=== PATIENT | male | born 1945 | race African-American/Black ===

== ENCOUNTER 2020-08-22 14:50 | Emergency (ER) | payer MEDICARE, SELFPAY ==
--- NOTE | ~2020-08-22 | XR_ITS ---
EXAMINATION: XR knee LT 3V EXAM DATE: 08/22/2020 16:35 INDICATION: Fall, left knee pain. TECHNIQUE: Three projections of the left knee. There is no prior study for comparison. FINDINGS: There is moderate-sized left knee joint effusion without evidence of lipomatous component. There are lucencies through the tibia which would be explained by prior tibial hardware that has been removed, please correlate for that history. This could also explain the abnormal appearance to the l ateral tibial spine, may have been avulsed with at injury. There are no acute fractures identified. No radiopaque foreign bodies identified. IMPRESSION: 1. Moderate joint effusion. 2. Evidence of substantial prior Injury causing some limitations, but no acute fracture line suspect ed. Reviewed, dictated and finalized at location G. IMPRESSION: 1. Moderate joint effusion. 2. Evidence of substantial prior Injury causing some limitations, but no acute fracture line suspected.
[2020-08-22 15:00] VITALS: BP 136/91; PULSE 91; PULSE 92; RESP 15; RESP 18; TEMP 37; O2SAT 93; O2SAT 96
[2020-08-22 15:16] VITALS: BP 111/80; PULSE 94; RESP 18; O2SAT 98
--- NOTE | 2020-08-22 17:29 | ED.FALL ---
HPI - Fall General Chief Complaint: Fall Stated Complaint: 3 falls today Time Seen by Provider: 08/22/20 14:57 History of Present Illness HPI Narrative: Patient is a 75-year-old male who presents the ER with knee pain. He was on a field golfing earlier in fell over. He then had 2 falls after that after injuring his left knee. He has pain over the medial aspect. Patient has history of some chronic back pain with right-sided sciatica nerve discomfort with chronic numbness to the anterior thigh. He has been seen outpatient by spine team and has had an MRI. He is going to see [facility] next week for a steroid injection in his back. No new pain in his back. Did not strike his head or lose consciousness. No new numbness or focal weakness to an arm or leg. He is not dizzy. Related Data Home Medications Medication Instructions Recorded Confirmed amlodipine 08/22/20 08/22/20 carvedilol 08/22/20 furosemide 08/22/20 hydrocodone-acetaminophen tablet 08/22/20 oxybutynin chloride mg PO 08/22/20 zolpidem PO 08/22/20 Allergies Allergy/AdvReac Type Severity Reaction Status Date / Time No Known Allergies Allergy Verified 08/22/20 15:06 Review of Systems Review of Systems: All systems reviewed & are unremarkable except as noted in HPI and below Constitutional: Constitutional: Denies chills, Denies fever(s) and Denies weakness ENT: Denies nasal congestion and Denies sore throat Musculoskeletal: Musculoskeletal: Reports back pain (chronic), Denies myalgias, Reports arthralgias and Denies joint swelling Neurologic: Denies dizziness, Denies focal weakness, Reports numbness (right thigh) and Denies weakness PMFSH Past Medical History Medical History (Updated 08/22/20 @ 17:34 by Jeevan Cali MD) Hypertension Prostate cancer Surgical History Surgical History (Updated 08/22/20 @ 17:31 by Jeevan Cali MD) History of orthopedic surgery Previous back surgery Exam Narrative: Exam Narrative: GENERAL: Well-appearing, well-nourished, and in no acute distress. HEAD: Normocephalic, atraumatic. CHEST: Clear to auscultation. No respiratory distress. HEART: Regular rate and rhythm. Normal peripheral pulses. EXTREMITIES: Normal range of motion. Normal strength of bilateral lower extremities. Tenderness along the medial aspect of the left knee with mild effusion. Ambulates well with walker. SKIN: Warm, dry, no rash. NEURO: No focal deficits. Alert and oriented x3. PSYCH: Normal mood and affect. Course Course Emergency Course: Ambulated well. Informed of results. Recommend using walker at home. Follow-up with pain management next week. Vital Signs Vital signs: Vital Signs Temperature 98.6 F 08/22/20 15:00 Pulse Rate 92 08/22/20 15:00 Respiratory Rate 18 08/22/20 15:00 Blood Pressure 136/91 H 08/22/20 15:00 Pulse Oximetry 96 08/22/20 15:00 Temperature 98.6 F 08/22/20 15:00 Pulse Rate 94 08/22/20 15:16 Respiratory Rate 18 08/22/20 15:16 Blood Pressure 111/80 08/22/20 15:16 Pulse Oximetry 98 08/22/20 15:16 Discharge Plan Discharge Clinical Impression: Sprain of knee Patient Disposition: Home, Self-Care Condition: Stable Instructions: Knee Sprain (ED) Additional Instructions: Return to the ER if you cannot walk, you fall and injure yourself, you have fever over 100.4 ?F, you have some other concerns. Prescriptions: New ibuprofen 800 mg tablet 800 mg PO TID Qty: 20 RF: 0 ibuprofen 600 mg tablet 600 mg PO TID Qty: 14 RF: 0 No Action carvedilol 25 mg tablet RF: 0 oxybutynin chloride 10 mg tablet extended release 24hr PO RF: 0 amlodipine 5 mg tablet RF: 0 hydrocodone-acetaminophen 10-325 mg tablet RF: 0 furosemide 20 mg tablet RF: 0 zolpidem 12.5 mg tablet,ext release multiphase PO RF: 0 Follow-up/Referrals: Zander,Sharee Mccormick MD [Primary Care Provider] - 1 Week
[2020-08-22 17:51] VITALS: BP 156/87; PULSE 68; RESP 18; O2SAT 99
== END 2020-08-22 17:53 | disposition home or self-care (01) ==
PROVIDERS: Emergency Provider Emergency Medicine; PCP Internal Medicine
DX: S83.92XA Sprain of unspecified site of left knee, initial encounter (principal); I10 Essential (primary) hypertension; Z85.46 Personal history of malignant neoplasm of prostate; W18.39XA Other fall on same level, initial encounter
CPT/HCPCS: 73562; 99283

== ENCOUNTER 2020-12-19 11:53 | Observation (INO) | payer MEDICARE, SELFPAY ==
[2020-12-19] VITALS (10 sets, daily range): BP systolic 78–148; BP diastolic 58–99; PULSE 83–147; RESP 14–21; TEMP 36.1–37.1; O2SAT 96–100; BMI 36.0
--- NOTE | ~2020-12-19 | XR_ITS ---
EXAMINATION: XR chest 1V portable DATE: 12/19/2020 13:17 INDICATION: Shortness of breath. TECHNIQUE: A single frontal view of the chest was obtained on 2 radiographs. COMPARISON: None. FINDINGS: Sensitivity is decreased by obesity. There is mild atelectasis at left lung base. No pleura l effusion or pneumothorax. The heart size is normal. There are changes of anterior fusion procedure in cervical spine and posterior fusion procedure in cervicothoracic spine. There are old healed left rib fractures. IMPRESSION: 1. Mild atelectasis at left lung base. Reviewed, dictated and finalized at location B. ITION TECHNICIAN
--- NOTE | 2020-12-19 12:14 | ECG_ITS ---
Measurements Intervals [place] Rate: 152 P: 253 [place]: 83 QRS: -48 QRSD: 108 T: 75 QT: 296 QTc: 471 Interpretive Statements SUPRAVENTRICULAR TACHYCARDIA, CONSIDER ATRIAL FLUTTER VENTRICULAR PREMATURE COMPLEX LEFT ANTERIOR FASCICULAR BLOCK LEFT VENTRICULAR HYPERTROPHY AND ST-T CHANGE ABNORMAL ECG Electronically Signed On 12-19-2020 13:38:32 BOMB LOADER by Amrit Ramirez D.O.
[2020-12-19] MEDS: LACTATED RINGERS 1,000 ML 999 ML IV CONT (12:31)
[2020-12-19 12:36] LABS: Basophils Percent Auto 0.4 % (0.2-1.2); Eosinophils Absolute Auto 0.2 K/mm3 (0-0.3); Eosinophils Percent Auto 2.2 % (0-4.4); Hematocrit 40.9 % (42.0-52.0); Hemoglobin 12.8 g/dL (14.0-18.0); Immature Granulocyte Absolute 0.05 K/mm3 (0.00-0.031); Immature Granulocyte Percent A 0.5 % (0-0.5); Lymphocytes Absolute Auto 2.65 K/mm3 (0.9-3.2); Lymphocytes Percent Auto 25.8 % (18.3-44.2); Mean Corpuscular HGB Conc 31.3 g/dl (32-36); Mean Corpuscular Hemoglobin 26.2 pg (26-34); Mean Corpuscular Volume 83.6 fl (80-100); Mean Platelet Volume 8.8 fl (7.4-10.4); Monocytes Absolute Auto 0.9 K/mm3 (0.1-0.6); Monocytes Percent Auto 8.7 % (2.6-8.5); Neutrophils Absolute Auto 6.4 K/mm3 (1.3-6.7); Neutrophils Percent Auto 62.4 % (45.5-73.1); Platelet Count Result 200 k/mm3 (150-375); Red Blood Count 4.89 M/mm3 (4.6-6.20); Red Cell Distribution Width 15.9 % (11.5-14.5); White Blood Count 10.3 K/mm3 (4.5-10.0)
[2020-12-19] MEDS: ETOMIDATE 20 MG/10 ML AMPUL 10 MG IV PUSH (12:36)
[2020-12-19 12:44] LABS: Alanine Aminotransferase 16 U/L (4-50); Albumin Level 3.5 g/dL (3.5-5.1); Alkaline Phosphatase 79 U/L (38-126); Anion Gap 5 mmol/L (8-16); Aspartate Amino Transferase 22 U/L (17-59); Bilirubin,Total 0.3 mg/dL (0.2-1.3); Blood Urea Nitrogen 16 mg/dL (9-20); Calcium 9.5 mg/dL (8.4-10.2); Carbon Dioxide 28 mmol/L (22-30); Chloride 107 mmol/L (98-107); Estimated CRCL calculation 60 ml/min; Estimated Glomerular Filt Rate 60; Glucose 118 mg/dL (75-110); Sodium 140 mmol/L (137-145)
--- NOTE | 2020-12-19 12:45 | ECG_ITS ---
Measurements Intervals [place] Rate: 91 P: 51 SC: 170 QRS: -9 QRSD: 118 T: 39 QT: 380 QTc: 470 Interpretive Statements SINUS RHYTHM INTRAVENTRICULAR CONDUCTION DELAY BORDERLINE R WAVE PROGRESSION, ANTERIOR LEADS BORDERLINE ECG Electronically Signed On 12-19-2020 13:39:03 THEATER EDUCATION TEACHER by Amrit Ramirez D.O.
--- NOTE | 2020-12-19 12:45 | PC.NURSE ---
Pt was cardioverted at 1239 at 100J. after noted SR with PAC. VS HR 91 BP 126/96 Resp 17 SPO2 94.
[2020-12-19 12:56] LABS: NT Pro B Type Natriuretic Pept 498 PG/ML (5-100); Troponin I 0.013 ng/mL (0.000-0.034)
[2020-12-19 13:14] LABS: Free T4 Free Thyroxine 1.22 ng/mL (0.78-2.19)
[2020-12-19 13:30] LABS: Lactic Acid Reflex 2.3 mmol/L (0.7-2.1)
--- NOTE | 2020-12-19 14:19 | ED.WEAKNESS ---
HPI - Weakness General Chief complaint: Weakness Stated complaint: low bp Time Seen by Provider: 12/19/20 12:09 Source: patient Mode of arrival: ambulatory Limitations: clinical condition History of Present Illness HPI Narrative: 75-year-old man Patient went to his doctor's office because he fell yesterday while he was putting his shoes on and scraped up his back He does not recall having shortness of breath or chest pain, did not notice that he was tachycardic, did not have any feeling that he was syncopal or presyncopal There he was noted to be hypotensive so he was sent to the ER via EMS Here he is also noted to be tachycardic with a heart rate of around 150 EKG looks like atrial flutter Patient is not super up on his past medical history noting that the reason for most of his medications is I needed them We were able to reach 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 Odom who confirmed a previous history of cardiomyopathy and paroxysmal A. fib, and also that the patient typically was in sinus rhythm, as far as he knew was anticoagulated, and agreed he would be a reasonable candidate to be successfully DC cardioverted Complaint: generalized weakness and lack of energy Related Data Home Medications Medication Instructions Recorded Confirmed amlodipine 08/22/20 08/22/20 carvedilol 08/22/20 furosemide 08/22/20 hydrocodone-acetaminophen tablet 08/22/20 oxybutynin chloride mg PO 08/22/20 zolpidem PO 08/22/20 Allergies Allergy/AdvReac Type Severity Reaction Status Date / Time No Known Allergies Allergy Verified 12/19/20 12:03 Review of Systems Review of Systems: ROS unobtainable: Yes unobtainable due to medical condition Constitutional: Constitutional: Denies fever(s) Cardiovascular: Cardiovascular: Denies chest pain Respiratory: Respiratory: Denies cough Gastrointestinal: Gastrointestinal: Denies vomiting Neurologic: Denies focal weakness PMFSH Past Medical History Medical History (Updated 12/19/20 @ 14:35 by Robert Mena MD) Hypertension Prostate cancer Surgical History Surgical History (Updated 08/22/20 @ 17:31 by Jeevan Cali MD) History of orthopedic surgery Previous back surgery Exam Const: General: well developed, awake and ill appearing Nutritional Appearance: well nourished Orientation/consciousness: patient oriented x3 (alert) HENMT: Head: normocephalic and atraumatic Ears: external ears normal General nose exam: No nasal discharge present and no epistaxis Face and sinus: face symmetric Eyes: Conjunctivae: conjunctivae normal Sclera: sclerae normal EOM: EOMs intact bilaterally Neck: Neck: normal visual inspection, supple and no JVD Chest: Chest palpation & inspection: deferred Resp: Effort & Inspection: tachypneic Auscultation: clear to auscultation bilaterally, no rales, no rhonchi, no wheezes and other (BS =) Cardio: Rate: regular rate and tachycardic Rhythm: regular rhythm Heart sounds: no gallops and no murmurs GI: Inspection: normal to inspection GI Palp: Yes Soft to palpation and No Tenderness to palpation present (GI) Back/Spine/Pelvis: Thoracic/Lumbar Spine: thoracic and lumbar spine normal to inspection Skin: General skin exam: normal color and no rashes or lesions noted Neuro: General: patient oriented x3 (alert) and moves all extremities Cranial nerves: Yes facial symmetry Speech: normal speech Extrem: General: normal to inspection and full ROM Course Vital Signs Vital signs: Vital Signs Temperature 37.1 C 12/19/20 12:00 Pulse Rate 147 H 12/19/20 12:00 Respiratory Rate 14 12/19/20 12:00 Blood Pressure 84/58 L 12/19/20 12:00 Pulse Oximetry 98 12/19/20 12:00 Temperature 37.1 C 12/19/20 12:00 Pulse Rate 144 H 12/19/20 12:34 Respiratory Rate 19 12/19/20 12:34 Blood Pressure 78/64 L 12/19/20 12:34 Pulse Oximetry 96 12/19/20 12:34 Procedures Other Procedure Procedure 1: Ot
[2020-12-19 16:10] LABS: Troponin I 0.017 ng/mL (0.000-0.034)
[2020-12-19 16:16] LABS: Reflex Lactic Acid Yes or No Add Lactic
[2020-12-19 16:42] LABS: Lactic Acid 1.3 mmol/L (0.7-2.1)
--- NOTE | 2020-12-19 20:00 | PM.IMHP ---
H&P: HPI History of Present Illness Date/Time: 12/19/20 20:00 Chief Complaint: Low blood pressure. Narrative: This is a 75-year-old male history of paroxysmal atrial fibrillation, cardiomyopathy, and hypertension who presented to the emergency department earlier today via EMS from his primary care provider's office for further treatment evaluation of low blood pressure. Yesterday while putting on his shoes he lost his balance and fell back into a filing cabinet, sustaining a laceration in the mid back area. He had an appointment with his primary care provider today to evaluate that wound and in fact he was feeling pretty good when he woke up. He had no specific complaints at the doctor's office but when they took his vital signs he was noted to be tachycardic and hypotensive, in atrial flutter with rapid ventricular response. Interestingly he had no symptoms of such and on arrival to the emergency department he was cardioverted due to ongoing tachycardia and hypotension. He converted into a normal sinus rhythm and his blood pressures have since stabilized. He states compliance with his home medication. He has not had any recent illnesses. No chest pain, pleuritic pain, or palpitations. He denies shortness of breath, lightheadedness, dizziness, syncope, and near syncope. No nausea, vomiting, or sweats. He denies significant caffeine and alcohol use. Reports being up-to-date on tetanus. Review of Systems Review of Systems: Narrative: Twelve systems were reviewed with pertinent positives and negatives as per HPI. No cold or flu symptoms. No exposure to those positive for COVID-19. It is noted on his previous medication list that he was on methimazole 1 point time, but does not remember having ever been diagnosed with hyperthyroidism ?and they seemed to put me on stuff all the time.? He has not been on that for many months. He denies orthopnea, PND, and lower extremity edema. Except as documented, all other systems were reviewed and are negative. [facility] Past Medical History Medical History (Updated 12/19/20 @ 23:35 by Aura Alvares PA-C) Cardiomyopathy Hypertension Osteoarthritis Paroxysmal atrial fibrillation Prostate cancer Surgical History Surgical History (Updated 12/19/20 @ 23:35 by Aura Alvares PA-C) History of cervical spinal surgery History of total bilateral knee replacement Family History Family History (Updated 12/19/20 @ 23:36 by Aura Alvares PA-C) Other Hypertension Social History Social History (Updated 12/19/20 @ 23:36 by Aura Alvares PA-C) Social History: The patient lives in [place] with his . 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 He smokes between 0.5 and 1 packs of cigarettes per day. Consumes perhaps 3 alcoholic beverages a week. No illicit substance use. He designates his and daughter as his surrogate decision makers and he wishes to be a full code. Smoking packs per day: 0.5 Smoking cigarettes per day: 10.0 Years smoked: 60 Smoking pack-years: 30.00 Smoking status: Current every day smoker Tobacco type: cigarettes Second hand tobacco smoke exposure: No Alcohol intake: current Drinks per week: 3 Substance use: never Substance use type: does not use Gender identity (if verbalized by the patient): Male Spiritual care concerns: No Meds Home Medications and Allergies Home Medications Medication Instructions Recorded Confirmed Type amlodipine 5 mg PO DAILY 08/22/20 12/19/20 History carvedilol 25 mg PO BID 08/22/20 12/19/20 History furosemide 20 mg PO DAILY 08/22/20 12/19/20 History hydrocodone-acetaminophen 10 - 325 tablet PO BID-TID PRN 08/22/20 12/19/20 History oxybutynin chloride 10 mg PO DAILY 08/22/20 12/19/20 History apixaban [Eliquis] 5 mg PO DAILY 12/19/20 12/19/20 History aspirin [Aspir-81] 81 mg PO DAILY 12/19/20 12/19/20 History gabapentin 300 mg PO TID 12/19/20 12/19/20 History omeprazole 20 mg PO DAILY 12/19/20
--- NOTE | 2020-12-19 20:12 | ADMGEN ---
This patient, Guerrero Bernard, was admitted to Medical Room 247-. Patient/family oriented to hospital policies and general routines including ID bracelet, bed and alarms, visiting hours, pain management, procedures, bathroom and other care routines, personal items, smoking policy, room service/diet, and visiting hours. Information on how to activate the Rapid Response Team has been discussed. Patient/Family are encouraged to report perceived risks to care and to ask questions if they do not understand what they are told or what they should do.
[2020-12-19 20:32] LABS: Troponin I 0.025 ng/mL (0.000-0.034)
[2020-12-19] MEDS: LACTATED RINGERS 1,000 ML 60 ML IV CONT (22:08)
[2020-12-19] MEDS: FAMOTIDINE 20 MG/2 ML VIAL IV PUSH (22:08)
[2020-12-20] VITALS (10 sets, daily range): BP systolic 122–140; BP diastolic 74–95; PULSE 82–99; RESP 18–21; TEMP 36.8–36.9; O2SAT 94–100
[2020-12-20] MEDS: carvediloL 25 MG TABLET PO ×2 (00:48→09:17)
[2020-12-20 05:27] LABS: Hematocrit 33.1 % (42.0-52.0); Hemoglobin 10.9 g/dL (14.0-18.0); Mean Corpuscular HGB Conc 32.9 g/dl (32-36); Mean Corpuscular Hemoglobin 26.5 pg (26-34); Mean Corpuscular Volume 80.5 fl (80-100); Mean Platelet Volume 9.1 fl (7.4-10.4); Platelet Count Result 170 k/mm3 (150-375); Red Blood Count 4.11 M/mm3 (4.6-6.20); Red Cell Distribution Width 15.5 % (11.5-14.5)
[2020-12-20 05:42] LABS: Anion Gap 2 mmol/L (8-16); Blood Urea Nitrogen 15 mg/dL (9-20); Calcium 8.4 mg/dL (8.4-10.2); Carbon Dioxide 28 mmol/L (22-30); Chloride 107 mmol/L (98-107); Estimated CRCL calculation 74 ml/min; Estimated Glomerular Filt Rate > 60; Glucose 102 mg/dL (75-110); Magnesium 1.7 mg/dL (1.6-2.3); Potassium 3.6 mmol/L (3.4-5.0); Sodium 137 mmol/L (137-145)
[2020-12-20 06:55] LABS: Thyroid Stimulating Hormone Reflex 0.121 uIU/mL (0.465-4.68)
[2020-12-20] MEDS: APIXABAN 5 MG TABLET PO (09:16)
[2020-12-20] MEDS: amLODIPine BESYLATE 5 MG TABLET PO (09:16)
[2020-12-20] MEDS: PANTOPRAZOLE SOD SESQUIHYDRATE 20 MG TAB PO (09:17)
[2020-12-20] MEDS: FUROSEMIDE 20 MG TABLET PO (09:17)
[2020-12-20] MEDS: SACUBITRIL/VALSARTAN 49-51 MG TABLET 1 TABLET PO (09:17)
[2020-12-20] MEDS: GABAPENTIN 300 MG CAPSULE PO ×2 (09:17→12:37)
[2020-12-20] MEDS: ASPIRIN 81 MG ENTERIC TABLET PO (09:17)
[2020-12-20 09:24] LABS: Free T4 Free Thyroxine Reflex 1.21 ng/dL (0.78-2.19)
[2020-12-20 11:29] LABS: Total Triiodothyronine (T3) 1.05 NG/ML (0.97-1.69)
--- NOTE | 2020-12-20 11:29 | PM.CNCAR ---
Assessment and Plan Additional Plan 75-year-old black male with: Established diagnosis of cardiomyopathy based on his medications we can fairly well consists presume that he has systolic left ventricular dysfunction. He apparently has a history of paroxysmal AFib in for that reason was anticoagulated with apixaban. Because of rapid atrial flutter and hypotension in that setting he was seen in the emergency room yesterday the ED staff restored sinus rhythm electrically after that he has been stable hemodynamically and seems to have no complaints today. His medical regimen as described above is appropriate I do not recommend changing that at all. Since his atrial flutter has been terminated I believe he is reasonable candidate for discharge at this time. He does have establish follow-up with a Cardiology practice elsewhere in as such I will not plan on making him an appointment in our office. If you have further questions regarding this opinion/situation please let me know so Martin Lala MD [facility] History of Present Illness History of Present Illness Consult date/time: 12/20/20 11:29 Consult reason: hypotension Reason For Visit: atrial flutter w/rapid rate/cardiogenic shock Narrative: This is a 75-year-old gentleman with whom I have no previous interaction I am seeing him at the request of the hospitalist because he was in seen in the emergency room yesterday in the setting of atrial flutter and hypotension. Apparently this gentleman has a has stabbed wish diagnosis of a cardiomyopathy and receives none of his cardiac care here at [facility]. 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 He was in the office of a primary care physician for a routinely scheduled appointment yesterday when he was checking in and found on vital signs to be hypotensive and tachycardic. He was interestingly unaware of this situation but was sent by ambulance to the emergency room. He was found to be in atrial flutter and was hypotensive and so the ER staff sedated him and electrically cardioverted him back to sinus rhythm at which time his blood pressure improved and he was then admitted last evening to the hospital. He is on telemetry and has maintained sinus rhythm since being cardioverted yesterday. Obviously I have no access to any of the records or details regarding his cardiomyopathy history as I dictate this note as we are not otherwise involved in his case. He is resting comfortably in his room this morning watching television as I entered the room to see him. He offers no other complaints. Review of Systems Constitutional: Constitutional: Reports no additional constitutional complaints Eyes: Eyes: Reports no additional eye complaints ENT: Reports system reviewed and no additional complaints, except as documented Cardiovascular: Cardiovascular: Reports as per HPI Respiratory: Respiratory: Reports no additional respiratory complaints Gastrointestinal: Gastrointestinal: Reports no additional gastrointestinal complaints Musculoskeletal: Musculoskeletal: Reports no additional musculoskeletal complaints Integumentary/Breasts: Skin/Breast: Reports system reviewed and no additional complaints, except as docu Neurologic: Reports system reviewed and no additional complaints, except as documented Endocrine: Endocrine: Reports no additional endocrine complaints Hematologic/Lymphatic: Hematologic/Lymphatic: Reports no additional hematologic/lymphatic complaints [facility] Past Medical History Medical History (Updated 12/19/20 @ 23:35 by Aura Alvares PA-C) Cardiomyopathy Hypertension Osteoarthritis Paroxysmal atrial fibrillation Prostate cancer Surgical History Surgical History (Updated 12/19/20 @ 23:35 by Aura Alvares PA-C) History of cervical spinal surgery History of total bilateral kn
--- NOTE | 2020-12-20 13:34 | PM.DS ---
DS: Admitting Diagnosis Admitting Diagnosis Admitting Diagnosis: Atrial flutter, hypotension DS: Discharge Diagnosis Discharge Diagnosis (1) Atrial flutter with rapid ventricular response: Code(s): I48.92 - Unspecified atrial flutter Status: Acute Assessment and Plan: (2) Elevated lactic acid level: Code(s): R79.89 - Other specified abnormal findings of blood chemistry Status: Acute Assessment and Plan: Lactic acid was elevated on arrival, likely due poor perfusion due to atrial flutter with rapid ventricular response. Repeat lactic acid was within normal limits. No signs or symptoms to suggest underlying infection. (3) Renal failure: Code(s): N19 - Unspecified kidney failure Status: Acute Assessment and Plan: Creatinine at presentation was 1.4. May have been related to hypoperfusion as well. He received IV fluids. Creatinine improved and was 1.1 at time of discharge. (4) Normocytic anemia: Code(s): D64.9 - Anemia, unspecified Status: Acute Assessment and Plan: Unclear chronicity. H&H remained stable. No signs or symptoms of active bleeding. Vital signs remained stable. He will need to follow-up with PCP. (5) Hypertension: Code(s): I10 - Essential (primary) hypertension Status: Acute Assessment and Plan: (6) Cardiomyopathy: Code(s): I42.9 - Cardiomyopathy, unspecified Status: Acute Assessment and Plan: (7) Tobacco abuse: Code(s): Z72.0 - Tobacco use Status: Acute Assessment and Plan: Patient smokes 1/2 pack per day. I explained to him the importance of smoking cessation, however he was not interested in discussing this topic further. He does not intend to quit smoking. Smoking cessation resources provided (8) Abnormal TSH: Code(s): R79.89 - Other specified abnormal findings of blood chemistry Status: Acute Assessment and Plan: TSH was slightly low, however free T4 and T3 were within normal limits. Follow-up with PCP and recommend repeat outpatient labs in 4-6 weeks. DS: Summary Hospital Course Reason for hospitalization: hypotension Hospital Course: date of admission: 12/19/2020 date of discharge: 12/20/2020 Guerrero Bernard is a 75-year-old male with history of paroxysmal atrial fibrillation on chronic anticoagulation with Eliquis, cardiomyopathy, and hypertension who presented to the emergency department on 12/19/2020 at the direction of his primary care provider for evaluation of low blood pressure. he was asymptomatic. Upon arrival to the emergency department, he was noted to be tachycardic with heart rate in the 150s, and BP was as low as 78/64. The emergency department physician spoke with the patient's crm campaign manager, Dr. Odom, who felt that the patient was a good candidate for DC cardioversion. He received 10 mg of etomidate IV and was cardioverted x1 with 100 J synchronized. sinus rhythm was successfully restored. He was admitted to the hospitalist service for further evaluation and management to ensure that he maintained sinus rhythm throughout the night. He was seen in consultation by cardiology who felt that his medical regimen was appropriate and no changes were made to his current medications. I spoke with his primary crm campaign manager office to inform them of the details of the patient's admission. He will need to follow-up with his crm campaign manager as an outpatient. As he remained asymptomatic throughout the episode, he was very eager for discharge home. given confucianism of sinus rhythm, he was determined to no longer require inpatient care and was felt to be stable for discharge. His blood pressures improved following cardioversion. BP at time of discharge was 122/74. Status at Discharge Functional status at discharge: independent ambulation Overall status at discharge: patient is back to baseline Time Spe
== END 2020-12-20 14:05 | disposition home or self-care (01) ==
LOC: ANHED 16:02 → ANH2MED 18:00
PROVIDERS: Physician Assistant; Admitting Provider Family Medicine; Emergency Provider Emergency Medicine; PCP Internal Medicine; Visit Provider Internal Medicine
DX: I48.92 Unspecified atrial flutter (principal); I95.9 Hypotension, unspecified; R79.89 Other specified abnormal findings of blood chemistry; N19 Unspecified kidney failure; S31.010A Laceration without foreign body of lower back and pelvis without penetration into retroperitoneum, initial encounter; D64.9 Anemia, unspecified; I11.9 Hypertensive heart disease without heart failure; I43 Cardiomyopathy in diseases classified elsewhere; F17.210 Nicotine dependence, cigarettes, uncomplicated; R06.02 Shortness of breath; W19.XXXA Unspecified fall, initial encounter; Z96.653 Presence of artificial knee joint, bilateral; Z79.01 Long term (current) use of anticoagulants
CPT/HCPCS: 36415; 71045; 80048; 80053; 83605; 83735; 83880; 84439; 84443; 84480; 84484; 85025; 85027; 92960; 93005; 96361; 96374; 96375; 99291; A9270; G0378; J7120

== ENCOUNTER 2021-06-25 01:18 | Day surgery (SDC) | payer MEDICARE, SELFPAY ==
[2021-06-17 16:01] VITALS: BMI 34.7
--- NOTE | 2021-06-24 09:41 | P.PNAN_ITS ---
Anes - Initial Pre Proc Eval Procedure: Operation Date: 06/25/21 12:00 Proposed Procedures p Esophagogastroduodenoscopy - Julio Rice MD Date/Time: 06/24/21 09:41 Surgeon: Julio Rice MD Pre Op Diagnosis: dysphagia Patient Data Age: 75 Gender: M Height: 1.88 m Weight: 122.5 kg Allergies Allergy/AdvReac Type Severity Reaction Status Date / Time No Known Allergies Allergy Verified 06/25/21 09:06 Home Medications Medication Instructions Recorded Confirmed Type amlodipine 5 mg PO DAILY 08/22/20 06/25/21 History carvedilol 25 mg PO BID 08/22/20 06/25/21 History furosemide 20 mg PO DAILY 08/22/20 06/25/21 History hydrocodone-acetaminophen 10 - 325 tablet PO BID-TID PRN 08/22/20 06/25/21 History oxybutynin chloride 10 mg PO DAILY 08/22/20 06/25/21 History Eliquis 5 mg PO BID 12/19/20 06/25/21 History Entresto 1 tablet PO DAILY 12/19/20 06/25/21 History aspirin 81 mg PO DAILY 12/19/20 06/25/21 History omeprazole 20 mg PO DAILY 12/19/20 06/25/21 History Patient hx anesthesia problems: none Family hx anesthesia problems: none PMFSH Past Medical History Medical History (Updated 06/25/21 @ 09:41 by Julio Rice MD) Atrial flutter Cardiomyopathy CHF (congestive heart failure) Chronic, continuous use of opioids Hypertension Osteoarthritis Paroxysmal atrial fibrillation Prostate cancer Tobacco abuse Surgical History Surgical History (Updated 06/24/21 @ 09:42 by Isaac Nevarez DO) History of cervical spinal surgery C1-7 History of total bilateral knee replacement Family History Family History (Updated 12/19/20 @ 23:36 by Aura Alvares PA-C) Other Hypertension Social History Social History (Updated 12/19/20 @ 23:36 by Aura Alvares PA-C) Social History: The patient lives in [place] with his . 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 He smokes between 0.5 and 1 packs of cigarettes per day. Consumes perhaps 3 alcoholic beverages a week. No illicit substance use. He designates his and daughter as his surrogate decision makers and he wishes to be a full code. Smoking packs per day: 1 Smoking cigarettes per day: 20.0 Years smoked: 58 Smoking pack-years: 58.00 Smoking status: Current every day smoker Tobacco type: cigarettes Second hand tobacco smoke exposure: No Alcohol intake: current Drinks per week: 6 Alcohol use details: BEER Substance use: never Substance use type: does not use Living arrangements: with family Gender identity (if verbalized by the patient): Male Spiritual care concerns: No Anes - Eval Final PreProcedure Day of Procedure 06/24/21 09:41 Patient weight: obese Heart: regular rate and rhythm Lungs: clear to auscultation and normal air movement Airway: Mallampati scale class II Neurological: alert and oriented Last oral intake: >/= 8 hours ASA classification: III Emergent: no Anesthetic plan: proceed Anesthesia type and monitoring: general GIVS and standard monitoring Informed Consent: The patient's anesthetic plan and its attendant risks and benefits were discussed with the patient/family/POA. Questions were solicited and answers provided to the satisfaction of the patient/family/POA.
[2021-06-25 08:55] VITALS: BP 116/81; PULSE 79; RESP 18; TEMP 36.1; O2SAT 98; BMI 33.4
[2021-06-25] MEDS: LACTATED RINGERS 1,000 ML 150 ML IV CONT (09:25)
--- NOTE | 2021-06-25 09:39 | PM.HPGS ---
History of Present Illness History of Present Illness Consent: Risks, benefits, and alternatives have been discussed and questions answered. Patient agrees to proceed with procedure. Chief complaint: dysphagia Narrative: Guerrero Bernard is a 75 year old male with progressive dysphagia. He has been unable to eat anything except mashed potato consistency foods for the past couple of weeks. He has lost about 20 or 25 lb. Last year he had endoscopy in [place] and then was referred to [facility] for further testing. He states that whatever they did there came back negative. He was not given a diagnosis or anything that he can recall. He was better for a while but about the of this year he again began having more problems with swallowing. Also he has pain with swallowing even liquids. Review of Systems Review of Systems: All systems reviewed & are unremarkable except as noted in HPI and below PMFSH Past Medical History Medical History Atrial flutter Cardiomyopathy CHF (congestive heart failure) Chronic, continuous use of opioids Hypertension Osteoarthritis Paroxysmal atrial fibrillation Prostate cancer Tobacco abuse Surgical History Surgical History History of cervical spinal surgery C1-7 History of total bilateral knee replacement Family History Family History Other Hypertension Social History Social History Social History: The patient lives in [place] with his . 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 He smokes between 0.5 and 1 packs of cigarettes per day. Consumes perhaps 3 alcoholic beverages a week. No illicit substance use. He designates his and daughter as his surrogate decision makers and he wishes to be a full code. Smoking packs per day: 1 Smoking cigarettes per day: 20.0 Years smoked: 58 Smoking pack-years: 58.00 Smoking status: Current every day smoker Tobacco type: cigarettes Second hand tobacco smoke exposure: No Alcohol intake: current Drinks per week: 6 Alcohol use details: BEER Substance use: never Substance use type: does not use Living arrangements: with family Gender identity (if verbalized by the patient): Male Spiritual care concerns: No Meds Home Medications and Allergies Home Medications Medication Instructions Recorded Confirmed Type amlodipine 5 mg PO DAILY 08/22/20 06/25/21 History carvedilol 25 mg PO BID 08/22/20 06/25/21 History furosemide 20 mg PO DAILY 08/22/20 06/25/21 History hydrocodone-acetaminophen 10 - 325 tablet PO BID-TID PRN 08/22/20 06/25/21 History oxybutynin chloride 10 mg PO DAILY 08/22/20 06/25/21 History Eliquis 5 mg PO BID 12/19/20 06/25/21 History Entresto 1 tablet PO DAILY 12/19/20 06/25/21 History aspirin 81 mg PO DAILY 12/19/20 06/25/21 History omeprazole 20 mg PO DAILY 12/19/20 06/25/21 History Allergies Allergy/AdvReac Type Severity Reaction Status Date / Time No Known Allergies Allergy Verified 06/25/21 09:06 Vital Signs Vital Signs - 24 hr 06/25/21 08:55 Temperature 36.1 C L Pulse Rate 79 Respiratory Rate 18 Blood Pressure 116/81 Pulse Oximetry 98 Exam Const: General: alert Orientation/consciousness: patient oriented x3 Resp: Auscultation: clear to auscultation bilaterally Cardio: Rhythm: regular rhythm GI: GI Palp: Yes Soft to palpation and No Tenderness to palpation present (GI) Neuro: General: patient oriented x3 Assessment and Plan Assessment and plan (1) Dysphagia: Code(s): R13.10 - Dysphagia, unspecified Status: Acute Assessment and Plan: EGD with possible biopsy or dilatation or cautery.
[2021-06-25 10:33] VITALS: BP 129/89; PULSE 81; RESP 17; O2SAT 96
[2021-06-25 10:43] VITALS: BP 131/93; PULSE 78; RESP 19; O2SAT 94
[2021-06-25 10:53] VITALS: BP 144/95; PULSE 72; RESP 20; O2SAT 96
== END 2021-06-25 11:08 | disposition home or self-care (01) ==
PROVIDERS: PCP Internal Medicine; Visit Provider Internal Medicine Gastroenterology
PROC: 0DJ08ZZ Inspection of Upper Intestinal Tract, Via Natural or Artificial Opening Endoscopic (ICD-10-PCS; CPT 43235; principal; 2021-06-25 10:00)
DX: K22.2 Esophageal obstruction (principal); K20.80 Other esophagitis without bleeding; I48.0 Paroxysmal atrial fibrillation; I42.9 Cardiomyopathy, unspecified; I11.0 Hypertensive heart disease with heart failure; I50.9 Heart failure, unspecified; Z98.1 Arthrodesis status; Z79.891 Long term (current) use of opiate analgesic; F17.210 Nicotine dependence, cigarettes, uncomplicated; E66.9 Obesity, unspecified; Z68.33 Body mass index [BMI] 33.0-33.9, adult
CPT/HCPCS: 43249; 88305; 88312; C1726; J2001; J2704; J7120

== ENCOUNTER 2023-09-01 14:27 | Observation (INO) | payer MEDICARE, SELFPAY ==
[2023-09-01] VITALS (10 sets, daily range): BP systolic 120–139; BP diastolic 78–104; PULSE 46–167; RESP 18–24; TEMP 35.9–37.3; O2SAT 92–98
--- NOTE | ~2023-09-01 | XR_ITS ---
EXAMINATION: [id number] DATE: 09/02/2023 14:00 INDICATION: Left knee pain, initial encounter TECHNIQUE: Two views of the left knee were obtained. COMPARISON: None. FINDINGS: There appears to be a minimally depressed fracture of the lateral tibial plateau. There is moderate tricompartmental osteoarthritis. There is a large knee joint effusion. There is soft tissue swelling surrounding the knee. IMPRESSION: 1. Probable minimally depressed lateral tibial plateau fracture. 2. Large knee joint effusion. Reviewed, dictated and finalized at location A.
--- NOTE | ~2023-09-01 | XR_ITS ---
EXAMINATION: XR wrist RT min 3V INDICATION: Right wrist pain, initial encounter TECHNIQUE: Four views of the right wrist are obtained on five radiographs. COMPARISON: None available FINDINGS: Bone alignment is normal. There is heterotopic ossification dorsal to the lunate on the lat eral view. Subtle lucency is also seen dorsal to the distal radius. There is soft tissue swelling of the wrist. IMPRESSION: 1. Findings consistent with dorsal lunate fracture. 2. Possible dorsal radius fracture. Consider CT to evaluate the wrist findings. Reviewed, dictated and finalized at location A.
--- NOTE | ~2023-09-01 | CT_ITS ---
EXAMINATION: CT knee LT wo con DATE: 09/02/2023 19:17 INDICATION: Left tibial plateau fracture. TECHNIQUE: Computed tomography (CT) of the left knee was performed without intravenous contrast. Auto mated exposure control and iterative reconstruction technique were employed. The dose-length product was 752.55 mGy-cm. COMPARISON: left knee radiographs 09/02/23 FINDINGS: There is a stellate fracture involving lateral facet of patella without displacement. There are old screw tracks in proximal tibia. There is moderate osteoarthritis of medial compartment and m ild osteoarthritis of lateral and patellofemoral compartments. There is heterotopic ossification of m edial collateral ligament. There is a moderate-sized hemarthrosis. There are loose bodies in the knee joint. IMPRESSION: 1. Stellate fracture of patella. 2. Moderate left knee osteoarthritis. 3. Moderate-sized hemarthrosis with loose bodies. Reviewed, dictated and finalized at location E.
--- NOTE | ~2023-09-01 | CT_ITS ---
EXAMINATION: CT wrist RT wo con DATE: 09/02/2023 19:17 INDICATION: Right wrist fracture. TECHNIQUE: Computed tomography (CT) of the right wrist was performed without intravenous contrast. Au tomated exposure control and iterative reconstruction technique were employed. The dose-length produc t was 430.44 mGy-cm. COMPARISON: Right wrist radiographs 09/02/2023 FINDINGS: There is a comminuted fracture of distal radius with involvement of the distal radioulnar j oint. The main distal fracture fragment demonstrates impaction. There is 4 degrees palmar tilt of the distal articular surface. There is a fracture of dorsal pole of triquetrum. There is moderate osteoa rthritis of distal radioulnar joint. There is severe osteoarthritis of lunate-triquetrum joint. There is mild osteoarthritis of lunate-hamate joint, triscaphe joint, and first carpometacarpal joint. The re are loose bodies in the radiocarpal compartment and intercarpal midcarpal compartment. IMPRESSION: 1. Comminuted fracture of distal radius. 2. Fracture of dorsal pole of triquetrum. 3. Polyarticular osteoarthritis with loose bodies. Reviewed, dictated and finalized at location E.
--- NOTE | ~2023-09-01 | XR_ITS ---
XR chest 1V portable DATE: 09/01/2023 15:52 INDICATION: Cough. Hypotension. History of congestive heart failure, hypertension TECHNIQUE: Portable supine AP chest on 08/2023 at 1548 hours COMPARISON: 12/19/2020 portable AP chest FINDINGS: Cardiomegaly. There is pulmonary vascular congestion and redistribution. Mild prominence of minor fissure suggests subpleural edema. Left retrocardiac lower lobe infiltrate and/atelectasis. Mild infiltrate or atelectasis in the right mid and lower lung. Minimal blunting of the left costophrenic angle suggesting small left pleural effusion. Diffuse osteopenia. Old healed left rib fractures. Status post cervical and upper thoracic spine fusion. IMPRESSION: Cardiomegaly, congestive heart failure Left lower lobe infiltrate, small left pleural effusion Minimal infiltrate or atelectasis, right mid and lower lung Reviewed, dictated and finalized at location B.
--- NOTE | 2023-09-01 14:39 | ECG_ITS ---
Measurements Intervals [place] Rate: 149 P: -57 [place]: 118 QRS: -45 QRSD: 114 T: 85 QT: 292 QTc: 460 Interpretive Statements SUPRAVENTRICULAR TACHYCARDIA WITH FREQUENT VENTRICULAR PREMATURE COMPLEXES, POSSIBLE ATRIAL FLUTTER LEFT ANTERIOR FASCICULAR BLOCK [QRS AXIS <= -45, QR IN I, RS IN II] LEFT VENTRICULAR HYPERTROPHY AND ST-T CHANGE [VOLTAGE CRITERIA PLUS ST/T ABNORMALITY] COMPARED TO ECG 12/19/2020 12:45:55 SUPRAVENTRICULAR TACHYCARDIA AND PVCS ARE PRESENT Electronically Signed On 09-01-2023 19:17:49 CDT by Adore Rivera M.D.
[2023-09-01 14:54] LABS: Basophils Percent Auto 0.2 % (0.2-1.2); Eosinophils Absolute Auto 0.2 K/mm3 (0-0.3); Eosinophils Percent Auto 1.6 % (0-4.4); Hematocrit 35.6 % (42.0-52.0); Hemoglobin 11.4 g/dL (14.0-18.0); Immature Granulocyte Absolute 0.04 K/mm3 (0.00-0.031); Immature Granulocyte Percent A 0.4 % (0-0.5); Lymphocytes Absolute Auto 1.85 K/mm3 (0.9-3.2); Lymphocytes Percent Auto 17.9 % (18.3-44.2); Mean Corpuscular Hemoglobin 26.5 pg (26-34); Mean Corpuscular Volume 82.8 fl (80-100); Mean Platelet Volume 9.5 fl (7.4-10.4); Monocytes Absolute Auto 1.3 K/mm3 (0.1-0.6); Monocytes Percent Auto 12.3 % (2.6-8.5); Neutrophils Percent Auto 67.6 % (45.5-73.1); Platelet Count Result 156 k/mm3 (150-375); Red Cell Distribution Width 16.9 % (11.5-14.5); White Blood Count 10.3 K/mm3 (4.5-10.0)
[2023-09-01 15:05] LABS: INR 1.8; Prothrombin Time 22.4 Seconds (11.1-14.7)
[2023-09-01 15:06] LABS: Partial Thromboplastin Time 35.6 SECONDS (22.3-36.8)
[2023-09-01 15:07] LABS: Lactic Acid Reflex 1.5 mmol/L (0.7-2.0)
[2023-09-01 15:09] LABS: Alanine Aminotransferase 14 U/L (6-50); Albumin Level 3.6 g/dL (3.5-5.1); Alkaline Phosphatase 81 U/L (38-126); Anion Gap 8 mmol/L (8-16); Aspartate Amino Transferase 18 U/L (17-59); Bilirubin,Total 0.8 mg/dL (0.2-1.3); Blood Urea Nitrogen 15 mg/dL (9-20); CRP 7.3 mg/dL (<1.0); Calcium 9.3 mg/dL (8.4-10.2); Carbon Dioxide 23 mmol/L (22-30); Chloride 105 mmol/L (98-107); Estimated CRCL calculation 48 ml/min; Estimated Glomerular Filt Rate 51; Glucose 146 mg/dL (65-110); Magnesium 1.8 mg/dL (1.6-2.3); Potassium 3.4 mmol/L (3.4-5.0); Sodium 136 mmol/L (137-145)
[2023-09-01] MEDS: SODIUM CHLORIDE 0.9% IV 1,000 ML 999 ML IV CONT (15:11)
[2023-09-01] MEDS: MAGNESIUM SULF 1 GM/D5W 100 ML 1 GM/100 ML BAG IVPB (15:12)
[2023-09-01] MEDS: DOXYCYCLINE HYCLATE 100 MG TABLET PO (15:12)
--- NOTE | 2023-09-01 15:18 | ED.GENADULT ---
HPI - General Adult General Chief complaint: Recheck/Abnormal Lab/Rx Stated complaint: septic History of Present Illness HPI narrative: This is a 78-year-old male, with past history of A-fib, coronary artery disease, hypothyroidism, brought in by EMS from his doctor's office for tachycardia and fever. The patient was recently seen in an outside emergency department for right wrist fracture after a ground-level fall at home. EMS reports, at the doctor's office, the patient was found to be hypotensive to 60s over 50s and febrile. On their evaluation, the patient was hypotensive to 80s over 50s and febrile to 102 degrees. IV fluids were started and the patient was transported here. The patient complains of some nonproductive cough, 8/10 intermittently sharp right wrist pain and 4/10, dull left knee pain. He has no other complaints. Related Data Home Medications Medication Instructions Recorded Confirmed carvedilol 25 mg tablet 25 mg PO BID 08/22/20 09/01/23 furosemide 20 mg tablet 20 mg PO DAILY 08/22/20 09/01/23 hydrocodone 10 mg-acetaminophen 10 - 325 tablet PO BID-TID PRN Pain 08/22/20 09/01/23 325 mg tablet omeprazole 20 mg tablet,delayed 20 mg PO DAILY 12/19/20 09/01/23 release Lupron Depot (6 Month) 45 mg IM [id number] 09/01/23 09/01/23 Nubeqa 300 mg PO BID 09/01/23 09/01/23 cholecalciferol (vitamin D3) 125 09/01/23 mcg (5,000 unit) capsule cholecalciferol (vitamin D3) 125 125 mcg DAILY 09/01/23 09/01/23 mcg (5,000 unit) capsule gabapentin 400 mg capsule 400 mg BID 09/01/23 09/01/23 methimazole 5 mg tablet 5 mg DAILY 09/01/23 09/01/23 naloxone 0.4 mg/mL injection 0.4 mg intranasal PRN PRN Opioid 09/01/23 09/01/23 solution Overdose pravastatin 40 mg tablet 40 mg DAILY 09/01/23 09/01/23 warfarin 4 mg tablet 4 mg DAILY 09/01/23 09/01/23 zolpidem 12.5 mg tablet,extended 12.5 mg PO HS 09/01/23 09/01/23 release,multiphase Allergies Allergy/AdvReac Type Severity Reaction Status Date / Time No Known Allergies Allergy Verified 06/25/21 09:06 Review of Systems Review of Systems: CONSTITUTIONAL: Denies fever, chills, or sweats. CARDIOVASCULAR: Denies chest pain, palpitations, or edema. RESPIRATORY: Nonproductive cough denies dyspnea. GASTROINTESTINAL: Denies abdominal pain, nausea, vomiting, or diarrhea. GENITOURINARY: Denies dysuria or hematuria. SKIN: Denies rash or itching. MUSCULOSKELETAL: Right wrist pain, left knee pain denies back pain, or myalgia. NEUROLOGIC: Denies headache, numbness, dizziness, or weakness. PSYCHIATRIC: Denies anxiety or depression. [facility] Past Medical History Medical History Atrial flutter Cardiomyopathy CHF (congestive heart failure) Chronic, continuous use of opioids Hypertension Osteoarthritis Paroxysmal atrial fibrillation Prostate cancer Tobacco abuse Surgical History Surgical History History of cervical spinal surgery C1-7 History of total bilateral knee replacement Family History Family History Other Hypertension Social History Social History Social History: The patient lives in [place] with his . 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 He smokes between 0.5 and 1 packs of cigarettes per day. Consumes perhaps 3 alcoholic beverages a week. No illicit substance use. He designates his and daughter as his surrogate decision makers and he wishes to be a full code. Smoking packs per day: 1 Smoking cigarettes per day: 20.0 Years smoked: 63 Smoking pack-years: 63.00 Smoking status: Current every day smoker Tobacco type: cigarettes Second hand tobacco smoke exposure: Yes Alcohol intake: current Drinks per week: 2 Alcohol use details: BEER Substance use: never Substance use type: does not use Lack of Transportation: No L
[2023-09-01] MEDS: CALCIUM GLUC 2,000 MG/NS 100ML 2,000 MG/100 ML BAG 100 MG IVPB (16:09)
--- NOTE | 2023-09-01 16:10 | PC.NURSE ---
blood cultures rejected per lab
[2023-09-01 16:30] LABS: Troponin I 0.021 ng/mL (0.000-0.034)
[2023-09-01 16:38] LABS: Influenza A QL RT-PCR Negative (Negative); Influenza B QL RT-PCR Negative (Negative); SARS-CoV-2 RNA PCR Negative (Negative)
[2023-09-01 20:37] LABS: Hemoglobin A1C 5.8 % (<5.7)
[2023-09-01 20:43] LABS: Troponin I 0.067 ng/mL (0.000-0.034)
--- NOTE | 2023-09-01 21:09 | PC.NURSE ---
critical trop 0.067 reported to BENJAMÍN Parekh, BENJAMÍN Parekh reporting to DO Loera, awaiting orders to be place by Do Loera NNO at this time.
[2023-09-01] MEDS: carvediloL 25 MG TABLET PO (22:23)
[2023-09-01] MEDS: WARFARIN (*PBKC) 5 MG TABLET PO (22:29)
[2023-09-01] MEDS: GABAPENTIN 400 MG CAPSULE PO (22:29)
--- NOTE | 2023-09-01 22:40 | PC.NURSE ---
Spoke with DO Hopen will wait for 3rd trop to determine if intervention is needed, no c/o chest pain from pt at this time. NNo at this time r.t trop of 0.067
--- NOTE | 2023-09-01 23:17 | PM.IMHP ---
H&P: HPI History of Present Illness Date/Time: 09/02/23 00:17 Chief Complaint: Low blood pressure at doctor's appointment Narrative: 78-year-old male with a past medical history of prostate cancer, hypothyroidism, paroxysmal atrial fibrillation, hyperthyroidism and cardiomyopathy who presented to the ER from doctor's office due to hypotension. Source of information is from past medical records and ER records. The patient is alert oriented to person and the fact that he is in the hospital and the year. He cannot give me much history regarding recent events at this time. He is somnolent. The patient had evidently had a fall about 3 days ago after feeling weak at home. He had a right wrist fracture and was seen at an outside facility. He went for an outpatient follow-up of his fracture and was found to be hypotensive with blood pressures of 60/50. He was febrile at the clinic with a temperature of a 102?. The patient was given fluids in route. The patient had been having a nonproductive cough for ?a few days?. He denies feeling short of breath. He did not answer questions regarding any abdominal symptoms or urinary symptoms. Patient was slow to respond. Skin was hot to touch at the time of my evaluation and he was diaphoretic. He grimaced quite significantly when I pressed against his wrist. He had told the ER that is wrist pain was 8/10 in intensity. He also told me that when he fell he landed on his knee. He would not tell me which knee he landed on but according to ER note he is having 4/10 pain in his left knee. Nursing staff tells me that the patient has been voiding without difficulty. He has not had a bowel movement since admission. The patient's blood pressures had already normalized by the time he arrived to the ER. He had minimal elevation in his white count. He was afebrile by the time he arrived to the ER. He was tachycardic on arrival up to 167 beats per minute. He was also the tachypneic with respiratory rate up to 24. Imaging demonstrated a right middle lobe and right lower lobe pneumonia. Review of Systems Review of Systems: Review of systems limited due to patient's somnolence. [facility] Past Medical History Medical History Atrial flutter Cardiomyopathy CHF (congestive heart failure) Chronic, continuous use of opioids Hypertension Osteoarthritis Paroxysmal atrial fibrillation Prostate cancer Tobacco abuse Surgical History Surgical History History of cervical spinal surgery C1-7 History of total bilateral knee replacement Family History Family History Other Hypertension Social History Social History Social History: The patient lives in [place] with his . 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 He smokes between 0.5 and 1 packs of cigarettes per day. Consumes perhaps 3 alcoholic beverages a week. No illicit substance use. He designates his and daughter as his surrogate decision makers and he wishes to be a full code. Smoking packs per day: 1 Smoking cigarettes per day: 20.0 Years smoked: 63 Smoking pack-years: 63.00 Smoking status: Current every day smoker Tobacco type: cigarettes Second hand tobacco smoke exposure: Yes Alcohol intake: current Drinks per week: 2 Alcohol use details: BEER Substance use: never Substance use type: does not use Lack of Transportation: No Lack of Food: Never True Current Housing: I Have Housing Concerned About Future Housing: No Difficulty Paying Gas/Electric Bills: No Difficulty Paying for Meds: No Currently Unemployed: No Education: Associate Degree Difficulty w/ Childcare or Family Care: No Living arrangements: with family Gender identity (if verbalized by the patient): Male Spiritual care concerns
[2023-09-02] VITALS (11 sets, daily range): BP systolic 133–138; BP diastolic 58–81; PULSE 78–100; RESP 16–20; TEMP 35.7–37.2; O2SAT 16–93
[2023-09-02] LABS: Troponin I 0.067 ng/mL (0.000-0.034)
--- NOTE | 2023-09-02 05:07 | PC.NURSE ---
bladder scan pt had 487 ml in bladder.
--- NOTE | 2023-09-02 05:19 | PC.NURSE ---
pt was able to void in urinal, rebladder scan pt 1 ml left no need for bowden placement at this time.
--- NOTE | 2023-09-02 05:22 | PC.NURSE ---
bladder scan 487 ml, pt was able to void in urinal, re bladder scanned only 1 ml left in bladder after voiding
--- NOTE | 2023-09-02 06:16 | PC.NURSE ---
urine samples still needed, forgot to collect with AM void.
[2023-09-02 06:28] LABS: Basophils Percent Auto 0.2 % (0.2-1.2); Eosinophils Absolute Auto 0.2 K/mm3 (0-0.3); Eosinophils Percent Auto 2.1 % (0-4.4); Hematocrit 32.8 % (42.0-52.0); Hemoglobin 10.5 g/dL (14.0-18.0); Immature Granulocyte Absolute 0.03 K/mm3 (0.00-0.031); Immature Granulocyte Percent A 0.3 % (0-0.5); Lymphocytes Percent Auto 21.7 % (18.3-44.2); Mean Corpuscular Hemoglobin 26.3 pg (26-34); Mean Platelet Volume 9.7 fl (7.4-10.4); Monocytes Absolute Auto 1.1 K/mm3 (0.1-0.6); Monocytes Percent Auto 12.9 % (2.6-8.5); Neutrophils Absolute Auto 5.5 K/mm3 (1.3-6.7); Neutrophils Percent Auto 62.8 % (45.5-73.1); Platelet Count Result 149 k/mm3 (150-375); Red Cell Distribution Width 16.9 % (11.5-14.5); White Blood Count 8.8 K/mm3 (4.5-10.0)
[2023-09-02 06:36] LABS: Anion Gap 6 mmol/L (8-16); Blood Urea Nitrogen 15 mg/dL (9-20); Calcium 9.2 mg/dL (8.4-10.2); Carbon Dioxide 24 mmol/L (22-30); Chloride 106 mmol/L (98-107); Estimated CRCL calculation 63 ml/min; Estimated Glomerular Filt Rate > 60; Glucose 102 mg/dL (65-110); Potassium 3.4 mmol/L (3.4-5.0); Sodium 136 mmol/L (137-145)
[2023-09-02 06:40] LABS: INR 1.9; Prothrombin Time 23.3 Seconds (11.1-14.7)
[2023-09-02] MEDS: DOXYCYCLINE 100 MG/NS 100 ML 100 MG/100 ML BAG IVPB ×2 (08:04→20:25)
[2023-09-02] MEDS: GABAPENTIN 400 MG CAPSULE PO ×2 (08:06→17:28)
[2023-09-02] MEDS: carvediloL 25 MG TABLET PO ×2 (08:06→20:24)
[2023-09-02] MEDS: PANTOPRAZOLE 40 MG TABLET PO (08:07)
[2023-09-02] MEDS: methiMAzole 5 MG TAB PO (08:07)
[2023-09-02] MEDS: PRAVASTATIN SODIUM 20 MG TABLET 40 MG PO (08:07)
[2023-09-02] MEDS: CHOLECALCIFEROL 1,000 UNITS TABLET 5000 UNITS PO (08:08)
--- NOTE | 2023-09-02 08:45 | PM.IMPN ---
Progress Note: A&P Assessment and Plan (1) Sepsis: Qualifiers: Acute renal failure type: unspecified Sepsis acute organ dysfunction status: with acute organ dysfunction Sepsis type: sepsis due to unspecified organism Severe sepsis acute organ dysfunction type: acute renal failure Severe sepsis shock status: without septic shock Qualified Code(s): A41.9 - Sepsis, unspecified organism; R65.20 - Severe sepsis without septic shock; N17.9 - Acute kidney failure, unspecified Code(s): A41.9 - Sepsis, unspecified organism Status: Acute Assessment and Plan: Sepsis criteria tachypnea, tachycardia, hypotension, and febrile 102. Fluid resuscitation with 1 L via EMS and 2 L in the ED leukocytosis of 10.3 Procal normal, lactic is normal, CRP elevated 7.3 Started on Rocephin and doxycycline for possible CAP IS, Pep therapy Blood cultures pending. Unable to produce sputum for culture. (2) CAP (community acquired pneumonia): Qualifiers: Laterality: unspecified laterality Qualified Code(s): J18.9 - Pneumonia, unspecified organism Code(s): J18.9 - Pneumonia, unspecified organism Status: Acute Assessment and Plan: XR chest with cardiomegaly, left lower lobe infiltrate, small left pleural effusion with minimal infiltrate or atelectasis, right middle and lower lobe minimal infiltrate or atelectasis see 1 (3) KANDICE (acute kidney injury): Code(s): N17.9 - Acute kidney failure, unspecified Status: Acute Assessment and Plan: Cr 1.60 on admission, now 1.20 after fluids Daily BMP (4) Atrial flutter with rapid ventricular response: Code(s): I48.92 - Unspecified atrial flutter Status: Acute Assessment and Plan: EKG on admission with SVT with frequent PVC, possible a-flutter. Rate of 149. Telemetry ordered On warfarin PT 23.3, INR 1.9 (5) Right wrist fracture: Qualifiers: Encounter type: sequela Fracture type: closed Qualified Code(s): S62.101S - Fracture of unspecified carpal bone, right wrist, sequela Code(s): S62.101A - Fracture of unspecified carpal bone, right wrist, initial encounter for closed fracture Status: Acute Assessment and Plan: Recent fall within the last few days splint in place complaints of pain obtain repeat imaging to right wrist and left knee may need ortho if fracture present Plan Feeding:heart healthy Analgesia: oxy and tylenol prn Thromboembolic prophylaxis: warfarin Ulcer prophylaxis: protonix Glycemic control: n/a Bowel regimen: miralax Lines: PIV Antibiotics: Rocephin and doxycycline Subjective Date/time seen: 09/02/23 08:45 Interval history: This 78-year-old male with a past medical history of prostate cancer, hypothyroidism, paroxysmal atrial fibrillation, hyperthyroidism and cardiomyopathy who presented to the ER from doctor's office due to hypotension. Evidently the patient suffered a fall 3 days ago after feeling weak at home. He suffered a right wrist fracture and was seen at an outside facility. He went for his outpatient follow up and was found to be hypotensive with a reported blood pressure of 60/50 as well as febrile 102. He received IV fluids in route to the ED and his blood pressure had normalized by time of arrival. He was tachycardic on arrival as high as 167 bmp per reports. Imaging demonstrated right middle and right lower lobe pneumonia. 10-5: No acute events overnight. Patient states that he has not felt well since Wednesday. When asked him what that means he says that he fell on Wednesday and hurt his right wrist and left knee and since then his right wrist has been causing him excruciating pain. He was seen at [facility] and x-rays were performed. They placed him in a splint and asked him to come back in 3 days for reimaging. He says that he went back but waited for 4 hours without being seen in than left. Yesterday was at his
[2023-09-02 09:43] LABS: NT Pro B Type Natriuretic Pept 1550 pg/mL (19.9-100)
[2023-09-02 09:47] LABS: Troponin I 0.037 ng/mL (0.000-0.034)
[2023-09-02 10:29] LABS: Procalcitonin 0.3 ng/mL
[2023-09-02] MEDS: oxyCODONE/ACETAMINOPHEN (*CRX) 10-325 MG TABLET 1 TAB PO ×3 (13:55→23:46)
--- NOTE | 2023-09-02 15:23 | PCOTNOTE ---
Pt. will likely require ortho consult. Hospitalist and nursing aware. Following.
--- NOTE | 2023-09-02 16:57 | PM.CNOR ---
Assessment and Plan Assessment and plan (1) Tibial plateau fracture, left: Code(s): S82.142A - Displaced bicondylar fracture of left tibia, initial encounter for closed fracture Status: Acute (2) Left lunate fracture: Code(s): S62.122A - Displaced fracture of lunate [semilunar], left wrist, initial encounter for closed fracture Status: Acute Plan Patient has dorsal chip fracture LEFT wrist. Pain with motion and manipulation. Will place in sa splint for now. Follow up in office for cast. Patient has what looks like a tibial plateau FX Left. WIll place in immobilizer. Will obtain a CT to look at tibial Fracture History of Present Illness HPI Consult date: 09/02/23 Chief complaint: pneumonia Narrative: 78 yo male admitted with pneumonia. Patient noted to have Left wrist and knee pain. X-rays show fractures. Review of Systems Musculoskeletal: Musculoskeletal: Reports as per HPI, Reports arthralgias and Reports joint swelling PMFSH Past Medical History Medical History Atrial flutter Cardiomyopathy CHF (congestive heart failure) Chronic, continuous use of opioids Hypertension Osteoarthritis Paroxysmal atrial fibrillation Prostate cancer Tobacco abuse Surgical History Surgical History History of cervical spinal surgery C1-7 History of total bilateral knee replacement Family History Family History Other Hypertension Social History Social History Social History: The patient lives in [place] with his . 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 He smokes between 0.5 and 1 packs of cigarettes per day. Consumes perhaps 3 alcoholic beverages a week. No illicit substance use. He designates his and daughter as his surrogate decision makers and he wishes to be a full code. Smoking packs per day: 1 Smoking cigarettes per day: 20.0 Years smoked: 63 Smoking pack-years: 63.00 Smoking status: Current every day smoker Tobacco type: cigarettes Second hand tobacco smoke exposure: Yes Alcohol intake: current Drinks per week: 2 Alcohol use details: BEER Substance use: never Substance use type: does not use Lack of Transportation: No Lack of Food: Never True Current Housing: I Have Housing Concerned About Future Housing: No Difficulty Paying Gas/Electric Bills: No Difficulty Paying for Meds: No Currently Unemployed: No Education: Associate Degree Difficulty w/ Childcare or Family Care: No Living arrangements: with family Gender identity (if verbalized by the patient): Male Spiritual care concerns: No Meds Home Medications and Allergies Home Medications Medication Instructions Recorded Confirmed Type carvedilol 25 mg tablet 25 mg PO BID 08/22/20 09/01/23 History furosemide 20 mg tablet 20 mg PO DAILY 08/22/20 09/01/23 History omeprazole 20 mg tablet,delayed 20 mg PO DAILY 12/19/20 09/01/23 History release Lupron Depot (6 Month) 45 mg IM [id number] 09/01/23 09/01/23 History Nubeqa 300 mg PO BID 09/01/23 09/01/23 History cholecalciferol (vitamin D3) 125 125 mcg PO DAILY 09/01/23 09/01/23 History mcg (5,000 unit) capsule gabapentin 400 mg capsule 400 mg PO BID 09/01/23 09/01/23 History methimazole 5 mg tablet 5 mg PO DAILY 09/01/23 09/01/23 History naloxone 0.4 mg/mL injection 0.4 mg intranasal PRN PRN Opioid 09/01/23 09/01/23 History solution Overdose oxycodone-acetaminophen 10 mg-325 1 tablet PO Q8H PRN prn 09/01/23 09/01/23 History mg tablet (Percocet) pravastatin 40 mg tablet 40 mg PO DAILY 09/01/23 09/01/23 History warfarin 4 mg tablet 4 mg PO DAILY 09/01/23 09/01/23 History zolpidem 12.5 mg tablet,extended 12.5 mg PO HS 09/01/23 09/01/23 History release,multiphase Allergies Allergy/AdvReac Type Severity
[2023-09-02] MEDS: WARFARIN (*PBKC) 5 MG TABLET PO (17:29)
[2023-09-02] MEDS: ZOLPIDEM TARTRATE (*CRX) 5 MG TABLET PO (20:24)
[2023-09-03] VITALS (12 sets, daily range): BP systolic 102–131; BP diastolic 76–96; PULSE 68–83; RESP 16–26; TEMP 35.9–36.4; O2SAT 90–98
--- NOTE | 2023-09-03 | ECHO_ITS ---
Patient Info Name: Guerrero Bernard Age: 78 years : 1945 Gender: Male Ht: 74 in Wt: 265 lbs BSA: 2.54 m2 HR: 75 bpm BP: 127 / 76 mmHg Heart Rhythm: Sinus Rhythm Technical Quality: Fair Exam Date: 09/03/2023 1:54 PM Exam Location: [facility] Patient Status: Outpatient Admit Date: 09/01/2023 Staff Ordering Physician: Esther Calero APRN [facility] Pharmacist: Val Johnson RDCS Attending Provider: Martin Connor MD Referring Physician: Galilea SOTO; Exam Type: CA echo dop color flow w con Study Info Indications - conern for chf Complete two-dimensional, color flow and Doppler transthoracic echocardiogram is performed with contrast to opacify the left ventricle and to improve the deliniation of the left ventricle endocardial borders. Contrast/Agitated Saline Contrast/Ag. Saline: Definity Amount: 2.00 ml Administered By: Val Johnson RDCS Existing IV Access: Yes IV Access Condition: patent with no signs of infiltration Summary 1. Left ventricular chamber dimension is mildly enlarged. 2. Left ventricular systolic function is mildly reduced, estimated at 45-50%. 3. There is mildly increased left ventricular wall thickness. 4. The left ventricular diastolic function is grade I diastolic dysfunction. 5. The basal inferior wall, mid inferior wall, basal anteroseptal, and mid anteroseptal are hypokinetic. 6. Left atrial chamber dimension is mildly enlarged. 7. Right atrial chamber dimension is mildly enlarged. 8. There is moderate aortic valve sclerosis. 9. There is mild mitral valve regurgitation. Left Ventricle Left ventricular chamber dimension is mildly enlarged. Left ventricular systolic function is mildly reduced, estimated at 45-50%. There is mildly increased left ventricular wall thickness. The left ventricular diastolic function is grade I diastolic dysfunction. The basal inferior wall, mid inferior wall, basal anteroseptal, and mid anteroseptal are hypokinetic. All other escalante appear normal. Right Ventricle Right ventricular chamber dimension is normal. Right ventricular systolic function is normal. Left Atria Left atrial chamber dimension is mildly enlarged. Right Atria Right atrial chamber dimension is mildly enlarged. Atrial Septum Intact interatrial septum visualized by color flow imaging. Aortic Valve The aortic valve is trileaflet. There is moderate aortic valve sclerosis. There is no aortic valve stenosis. There is trace aortic valve regurgitation. Pulmonic Valve The pulmonic valve is normal. There is no pulmonic valve stenosis. There is trace pulmonic regurgitation. Mitral Valve The mitral valve has thickened leaflets. There is no mitral valve stenosis. There is mild mitral valve regurgitation. Tricuspid Valve The tricuspid valve leaflets are normal. There is no significant tricuspid valve stenosis. There is trace tricuspid valve regurgitation. No pulmonary hypertension, estimated pulmonary arterial systolic pressure is 27 mmHg. Pericardium/Pleural The pericardium appears normal. There is no pericardial effusion. Inferior Vena Cava Normal inferior vena cava with >50% collapse upon inspiration consistent with normal right atrial pressure, 10 mmHg. Aorta The aortic root size at the sinus of Valsalva is normal. Left Ventricular Outflow Tract Name Value Normal
[2023-09-03] MEDS: oxyCODONE/ACETAMINOPHEN (*CRX) 10-325 MG TABLET 1 TAB PO ×2 (04:17→18:30)
[2023-09-03 06:50] LABS: Basophils Percent Auto 0.4 % (0.2-1.2); Eosinophils Absolute Auto 0.3 K/mm3 (0-0.3); Eosinophils Percent Auto 3.6 % (0-4.4); Hematocrit 32.4 % (42.0-52.0); Hemoglobin 10.4 g/dL (14.0-18.0); Immature Granulocyte Absolute 0.02 K/mm3 (0.00-0.031); Immature Granulocyte Percent A 0.3 % (0-0.5); Lymphocytes Absolute Auto 1.97 K/mm3 (0.9-3.2); Lymphocytes Percent Auto 26.6 % (18.3-44.2); Mean Corpuscular HGB Conc 32.1 g/dl (32-36); Mean Corpuscular Hemoglobin 26.3 pg (26-34); Mean Platelet Volume 9.1 fl (7.4-10.4); Monocytes Absolute Auto 0.8 K/mm3 (0.1-0.6); Monocytes Percent Auto 11.1 % (2.6-8.5); Neutrophils Absolute Auto 4.3 K/mm3 (1.3-6.7); Platelet Count Result 155 k/mm3 (150-375); Red Blood Count 3.95 M/mm3 (4.6-6.20); Red Cell Distribution Width 15.9 % (11.5-14.5); White Blood Count 7.4 K/mm3 (4.5-10.0)
[2023-09-03 06:53] LABS: Prothrombin Time 24.5 Seconds (11.1-14.7)
[2023-09-03 06:54] LABS: Alanine Aminotransferase 14 U/L (6-50); Albumin Level 3.2 g/dL (3.5-5.1); Alkaline Phosphatase 69 U/L (38-126); Anion Gap 6 mmol/L (8-16); Aspartate Amino Transferase 20 U/L (17-59); Bilirubin,Total 0.5 mg/dL (0.2-1.3); Blood Urea Nitrogen 16 mg/dL (9-20); Calcium 9.3 mg/dL (8.4-10.2); Carbon Dioxide 24 mmol/L (22-30); Chloride 105 mmol/L (98-107); Estimated CRCL calculation 63 ml/min; Estimated Glomerular Filt Rate > 60; Glucose 110 mg/dL (65-110); Magnesium 2.1 mg/dL (1.6-2.3); Phosphorus 3.4 mg/dL (2.5-4.5); Potassium 3.4 mmol/L (3.4-5.0); Sodium 135 mmol/L (137-145)
[2023-09-03] MEDS: DOXYCYCLINE 100 MG/NS 100 ML 100 MG/100 ML BAG IVPB (09:55)
[2023-09-03] MEDS: PRAVASTATIN SODIUM 20 MG TABLET 40 MG PO (09:58)
[2023-09-03] MEDS: polyethylene glycoL 3350 17 GM POWD.PACK PO (09:58)
[2023-09-03] MEDS: CHOLECALCIFEROL 1,000 UNITS TABLET 5000 UNITS PO (09:58)
[2023-09-03] MEDS: GABAPENTIN 400 MG CAPSULE PO ×2 (09:58→16:12)
[2023-09-03] MEDS: carvediloL 25 MG TABLET PO ×2 (09:58→21:27)
[2023-09-03] MEDS: methiMAzole 5 MG TAB PO (09:59)
[2023-09-03] MEDS: PANTOPRAZOLE 40 MG TABLET PO (09:59)
--- NOTE | 2023-09-03 12:28 | PM.IMPN ---
Progress Note: A&P Assessment and Plan (1) Sepsis: Qualifiers: Acute renal failure type: unspecified Sepsis acute organ dysfunction status: with acute organ dysfunction Sepsis type: sepsis due to unspecified organism Severe sepsis acute organ dysfunction type: acute renal failure Severe sepsis shock status: without septic shock Qualified Code(s): A41.9 - Sepsis, unspecified organism; R65.20 - Severe sepsis without septic shock; N17.9 - Acute kidney failure, unspecified Code(s): A41.9 - Sepsis, unspecified organism Status: Acute Assessment and Plan: Sepsis criteria tachypnea, tachycardia, hypotension, and febrile 102. Fluid resuscitation with 1 L via EMS and 2 L in the ED leukocytosis of 10.3 Procal normal, lactic is normal, CRP elevated 7.3 Started on Rocephin and doxycycline for possible CAP---de-escalated to Levaquin. IS, Pep therapy Blood cultures pending. Unable to produce sputum for culture. Blood cultures with NGTD (2) CAP (community acquired pneumonia): Qualifiers: Laterality: unspecified laterality Qualified Code(s): J18.9 - Pneumonia, unspecified organism Code(s): J18.9 - Pneumonia, unspecified organism Status: Acute Assessment and Plan: XR chest with cardiomegaly, left lower lobe infiltrate, small left pleural effusion with minimal infiltrate or atelectasis, right middle and lower lobe minimal infiltrate or atelectasis see 1 (3) KANDICE (acute kidney injury): Code(s): N17.9 - Acute kidney failure, unspecified Status: Acute Assessment and Plan: Cr 1.60 on admission, now 1.20 after fluids Daily BMP (4) Atrial flutter with rapid ventricular response: Code(s): I48.92 - Unspecified atrial flutter Status: Acute Assessment and Plan: EKG on admission with SVT with frequent PVC, possible a-flutter. Rate of 149. Telemetry ordered On warfarin PT 23.3, INR 1.9 (5) Right wrist fracture: Qualifiers: Encounter type: sequela Fracture type: closed Qualified Code(s): S62.101S - Fracture of unspecified carpal bone, right wrist, sequela Code(s): S62.101A - Fracture of unspecified carpal bone, right wrist, initial encounter for closed fracture Status: Acute Assessment and Plan: Recent fall within the last few days splint in place complaints of pain obtain repeat imaging to right wrist and left knee Need rec's for weight bearing status to the left knee so therapy can further evaluate. Orthopedics consulted, rec's appreciated after concerns for fractures to right wrist and left knee seen on plain film. Ortho placed a SA splint and recommends follow up in the office for casting. Left knee immobilizer placed and CT of both knee and wrist obtained. See CT below; Left KNEE IMPRESSION: 1. Stellate fracture of patella. 2. Moderate left knee osteoarthritis. 3. Moderate-sized hemarthrosis with loose bodies. Right WRIST IMPRESSION: 1. Comminuted fracture of distal radius. 2. Fracture of dorsal pole of triquetrum. 3. Polyarticular osteoarthritis with loose bodies. Plan Feeding:heart healthy Analgesia: oxy and tylenol prn Thromboembolic prophylaxis: warfarin Ulcer prophylaxis: protonix Glycemic control: n/a Bowel regimen: miralax Lines: PIV Antibiotics: Levaquin PO through 09/05 awaiting othro rec's for the left knee fracture. Need weight bearing status if no surgery warranted so that therapy can evaluate. Subjective Date/time seen: 09/03/23 12:28 Interval history: This 78-year-old male with a past medical history of prostate cancer, hypothyroidism, paroxysmal atrial fibrillation, hyperthyroidism and cardiomyopathy who presented to the ER from doctor's office due to hypotension. Evidently the patient suffered a fall 3 days ago after feeling weak at home. He suffered a right wrist fracture and was seen at an outside facility. He went for his outpatient follow u
--- NOTE | 2023-09-03 13:09 | PCPTNOTE ---
Addendum entered by Lisa Allison, ENT PHYSICIAN 09/03/23 13:18: RN notified. Original Note: Hold on therapy for today due to not having patient's weight bearing status. Will check back regarding weight bearing status.
[2023-09-03] MEDS: PERFLUTREN LIPID MICROSPHERES 1.5 ML VIAL DILUTED TO 10 ML TOTAL VOLUME IV PUSH (14:20)
[2023-09-03] MEDS: oxyCODONE/ACETAMINOPHEN (*CRX) 5-325 MG TABLET 1 TABLET PO (14:41)
--- NOTE | 2023-09-03 14:42 | PCOTNOTE ---
Awaiting additional ortho consult with weight bearing status for LE fx. prior to mobilizing.
--- NOTE | 2023-09-03 15:33 | PM.PNORT ---
Progress Note: A&P Assessment and Plan (1) Closed right lunate fracture: Code(s): S62.121A - Displaced fracture of lunate [semilunar], right wrist, initial encounter for closed fracture Status: Acute (2) Left patella fracture: Code(s): S82.002A - Unspecified fracture of left patella, initial encounter for closed fracture Status: Acute Plan Right Wrist Fx, dorsal chip in brace Left Patella Fx in Immobilizer Discussed with patient. F/U in office Time Spent With Patient Time with patient: less than 15 minutes Subjective Subjective Date/Time Seen: 09/03/23 15:33 Principal diagnosis: RIght wrist FX: Left patella FX Exam Narrative: Pain with motion of Right Wrist and Left Knee. Joint swollen. NVI Objective Data Vital Signs Vital Signs: Vital Signs - 24 hr 09/02/23 16:00 09/02/23 20:00 09/03/23 00:00 Temperature Pulse Rate 83 84 78 Respiratory Rate Blood Pressure Pulse Oximetry 09/02/23 21:05 09/03/23 01:10 09/03/23 04:00 Temperature 97.1 F L 97.2 F L Pulse Rate 82 77 79 Respiratory Rate 16 16 Blood Pressure 133/58 L Pulse Oximetry 16 L 90 09/03/23 04:25 09/03/23 09:58 09/03/23 14:00 Temperature 96.7 F L 97.5 F L Pulse Rate 75 68 79 Respiratory Rate 26 H 22 H Blood Pressure 127/76 102/76 Pulse Oximetry 94 98 Intake/Output Intake/Output: Intake & Output 08/31/23 09/01/23 09/02/23 09/03/23 23:59 23:59 23:59 23:59 Intake Total 2974 878 1501 Output Total 400 325 Balance 1250 280 715 Meds/Results Medications: Active Medications Generic Name Dose Route Start Last Admin Trade Name Freq PRN Reason Stop Dose Admin Acetaminophen 500 mg 09/01/23 19:04 Acetaminophen 500 Mg Tablet PO Q4H PRN Mild Pain (1-3) or Fever Carvedilol 25 mg 09/01/23 22:15 09/03/23 09:58 Carvedilol 25 Mg Tablet PO 25 mg Q12HR [place] Administration Gabapentin 400 mg 09/01/23 22:15 09/03/23 09:58 Gabapentin 400 Mg Capsule PO 400 mg BID [place] Administration Levofloxacin 750 mg 09/04/23 09:00 Levofloxacin 750 Mg Tablet PO 09/05/23 21:00 DAILY [facility] Methimazole 5 mg 09/02/23 09:00 09/03/23 09:59 Methimazole 5 Mg Tab PO 5 mg DAILY [place] Administration Miscellaneous Information 0 each 09/01/23 22:20 09/01/23 22:23 Nubeqa 300 Mg- Nonformulary. Please Obtain A Home Supply Or Hold While Inpatient. XX 10/01/23 22:19 Not Given CLARIFY [place] Non-Formulary Medication 300 mg 09/02/23 09:00 Nubeqa PO 10/02/23 08:59 BID [place] Oxycodone/Acetaminophen 1 tab 09/02/23 15:23 09/03/23 04:17 Oxycodone/Acetaminophen (*Crx) 10-325 Mg Tablet PO 1 tab Q4H PRN Administration Pain 7-10 Oxycodone/Acetaminophen 1 tablet 09/02/23 15:23 09/03/23 14:41 Oxycodone/Acetaminophen (*Crx) 5-325 Mg Tablet PO 1 tablet Q4H PRN Administration Pain Rated 4-6 Pantoprazole Sodium 40 mg 09/02/23 09:00 09/03/23 09:59 Pantoprazole 40 Mg Tablet PO 40 mg QAM [place] Administration Perflutren Lipid Microsphere 0 ml 09/02/23 09:46 Perflutren Lipid Microspheres 1.5 Ml Vial Diluted To 10 Ml Total Volume IV PUSH 09/05/23 09:46 ONCE PRN adequate visualization Protocol Polyethylene Glycol 17 gm 09/03/23 09:00 09/03/23 09:58 Polyethylene Glycol 3350 17 Gm Powd.Pack PO 17 gm QAM [place] Administration Pravastatin Sodium 40 mg 09/02/23 09:00 09/03/23 09:58 Pravastatin Sodium 20 Mg Tablet PO 40 mg DAILY [place] Administration Vitamin D 5,000 units 09/02/23 09:00 09/03/23 09:58 Cholecalciferol 1,000 Units Tablet PO 5,000 units DAILY [place] Administration Warfarin Sodium 5 mg 09/01/23 22:20 09/02/23 17:29 Warfarin (*Pbkc) 5 Mg Tablet PO 5 mg DAILY@1700 [place] Administration Zolpidem Tartrate 5 mg 09/01/23 22:20 09/02/23 20:24 Zolpidem Tartrate (*Crx) 5 Mg Tablet PO 5 mg HS [place] Administration Radiology Results: ITS Impressions C
[2023-09-03] MEDS: WARFARIN (*PBKC) 5 MG TABLET PO (16:12)
--- NOTE | 2023-09-03 16:39 | PCOTNOTE ---
Spoke with Orthopedic Dr. Alcazar, who stated pt. is to wear knee immobilizer at all times and is toe touch weight bearing on L LE. Pt. will require platform walker at discharge to maintain non weight bearing on UE fx.
--- NOTE | 2023-09-03 16:44 | IVDEFINITY ---
Prior to administration of IV Definity the patient was educated on the risks and benefits of the imaging enhancing agent including potential adverse side effects. The patient verbalized understanding. Allergies were verified. No exclusion criteria were identified and at least one of the following inclusion criteria were met: 1) physician request, 2) patient technically difficult to image (per the [place] [employer] guidelines of two or more segments not discernable within the apical view), or 3) questionable left ventricular function. ?
[2023-09-03] MEDS: ZOLPIDEM TARTRATE (*CRX) 5 MG TABLET PO (21:27)
[2023-09-04] VITALS: PULSE 73
[2023-09-04 00:37] VITALS: O2SAT 97
[2023-09-04 04:00] VITALS: PULSE 74
[2023-09-04 05:35] VITALS: BP 142/97; PULSE 81; RESP 16; TEMP 36.6; O2SAT 98
[2023-09-04 07:29] LABS: Basophils Percent Auto 0.3 % (0.2-1.2); Eosinophils Absolute Auto 0.2 K/mm3 (0-0.3); Eosinophils Percent Auto 4.1 % (0-4.4); Hematocrit 32.7 % (42.0-52.0); Hemoglobin 10.5 g/dL (14.0-18.0); Immature Granulocyte Absolute 0.02 K/mm3 (0.00-0.031); Immature Granulocyte Percent A 0.3 % (0-0.5); Lymphocytes Absolute Auto 1.58 K/mm3 (0.9-3.2); Lymphocytes Percent Auto 27.1 % (18.3-44.2); Mean Corpuscular HGB Conc 32.1 g/dl (32-36); Mean Corpuscular Hemoglobin 26.5 pg (26-34); Mean Corpuscular Volume 82.6 fl (80-100); Mean Platelet Volume 9.4 fl (7.4-10.4); Monocytes Absolute Auto 0.7 K/mm3 (0.1-0.6); Neutrophils Absolute Auto 3.3 K/mm3 (1.3-6.7); Neutrophils Percent Auto 56.2 % (45.5-73.1); Platelet Count Result 191 k/mm3 (150-375); Red Blood Count 3.96 M/mm3 (4.6-6.20); White Blood Count 5.8 K/mm3 (4.5-10.0)
[2023-09-04 07:34] LABS: INR 1.9; Prothrombin Time 22.8 Seconds (11.1-14.7)
[2023-09-04 07:41] LABS: Alanine Aminotransferase 14 U/L (6-50); Albumin Level 3.2 g/dL (3.5-5.1); Alkaline Phosphatase 68 U/L (38-126); Anion Gap 4 mmol/L (8-16); Aspartate Amino Transferase 21 U/L (17-59); Bilirubin,Total 0.6 mg/dL (0.2-1.3); Blood Urea Nitrogen 15 mg/dL (9-20); Calcium 9.3 mg/dL (8.4-10.2); Carbon Dioxide 26 mmol/L (22-30); Chloride 105 mmol/L (98-107); Estimated CRCL calculation 69 ml/min; Estimated Glomerular Filt Rate > 60; Glucose 101 mg/dL (65-110); Potassium 3.6 mmol/L (3.4-5.0); Sodium 135 mmol/L (137-145)
[2023-09-04 08:00] VITALS: PULSE 80
[2023-09-04 08:16] VITALS: PULSE 74
[2023-09-04] MEDS: carvediloL 25 MG TABLET PO (08:16)
[2023-09-04] MEDS: levoFLOXacin 750 MG TABLET PO (08:16)
[2023-09-04] MEDS: GABAPENTIN 400 MG CAPSULE PO (08:16)
[2023-09-04] MEDS: methiMAzole 5 MG TAB PO (08:16)
[2023-09-04] MEDS: PANTOPRAZOLE 40 MG TABLET PO (08:16)
[2023-09-04] MEDS: CHOLECALCIFEROL 1,000 UNITS TABLET 5000 UNITS PO (08:16)
[2023-09-04] MEDS: polyethylene glycoL 3350 17 GM POWD.PACK PO (08:16)
[2023-09-04] MEDS: PRAVASTATIN SODIUM 20 MG TABLET 40 MG PO (08:17)
--- NOTE | 2023-09-04 09:27 | PM.DS ---
DS: Admitting Diagnosis Discharge Date 09/04 Admitting Diagnosis fall, pneumonia DS: Discharge Diagnosis Discharge Diagnosis (1) Sepsis: Qualifiers: Sepsis type: sepsis due to unspecified organism Sepsis acute organ dysfunction status: with acute organ dysfunction Severe sepsis acute organ dysfunction type: acute renal failure Acute renal failure type: unspecified Severe sepsis shock status: without septic shock Qualified Code(s): A41.9 - Sepsis, unspecified organism; R65.20 - Severe sepsis without septic shock; N17.9 - Acute kidney failure, unspecified Code(s): A41.9 - Sepsis, unspecified organism Status: Acute Assessment and Plan: Sepsis criteria tachypnea, tachycardia, hypotension, and febrile 102. Fluid resuscitation with 1 L via EMS and 2 L in the ED leukocytosis of 10.3 Procal normal, lactic is normal, CRP elevated 7.3 Started on Rocephin and doxycycline for possible CAP---de-escalated to Levaquin. IS, Pep therapy Blood cultures pending. Unable to produce sputum for culture. Blood cultures with NGTD (2) CAP (community acquired pneumonia): Qualifiers: Laterality: unspecified laterality Qualified Code(s): J18.9 - Pneumonia, unspecified organism Code(s): J18.9 - Pneumonia, unspecified organism Status: Acute Assessment and Plan: XR chest with cardiomegaly, left lower lobe infiltrate, small left pleural effusion with minimal infiltrate or atelectasis, right middle and lower lobe minimal infiltrate or atelectasis see 1 (3) KANDICE (acute kidney injury): Code(s): N17.9 - Acute kidney failure, unspecified Status: Acute Assessment and Plan: Cr 1.60 on admission, now 1.20 after fluids Daily BMP (4) Atrial flutter with rapid ventricular response: Code(s): I48.92 - Unspecified atrial flutter Status: Acute Assessment and Plan: EKG on admission with SVT with frequent PVC, possible a-flutter. Rate of 149. Telemetry ordered On warfarin PT 23.3, INR 1.9 (5) Right wrist fracture: Qualifiers: Encounter type: sequela Fracture type: closed Qualified Code(s): S62.101S - Fracture of unspecified carpal bone, right wrist, sequela Code(s): S62.101A - Fracture of unspecified carpal bone, right wrist, initial encounter for closed fracture Status: Acute Assessment and Plan: Recent fall within the last few days splint in place complaints of pain obtain repeat imaging to right wrist and left knee Need rec's for weight bearing status to the left knee so therapy can further evaluate. Orthopedics consulted, rec's appreciated after concerns for fractures to right wrist and left knee seen on plain film. Ortho placed a SA splint and recommends follow up in the office for casting. Left knee immobilizer placed and CT of both knee and wrist obtained. See CT below; Left KNEE IMPRESSION: 1. Stellate fracture of patella. 2. Moderate left knee osteoarthritis. 3. Moderate-sized hemarthrosis with loose bodies. Right WRIST IMPRESSION: 1. Comminuted fracture of distal radius. 2. Fracture of dorsal pole of triquetrum. 3. Polyarticular osteoarthritis with loose bodies. Plan Feeding:heart healthy Analgesia: oxy and tylenol prn Thromboembolic prophylaxis: warfarin Ulcer prophylaxis: protonix Glycemic control: n/a Bowel regimen: miralax Lines: PIV Antibiotics: Levaquin PO through 09/05 awaiting othro rec's for the left knee fracture. Need weight bearing status if no surgery warranted so that therapy can evaluate. DS: Summary Hospital Course Hospital Course: Interval history: This 78-year-old male with a past medical history of prostate cancer, hypothyroidism, paroxysmal atrial fibrillation, hyperthyroidism and cardiomyopathy who presented to the ER from doctor's office due to hypotension. Evidently the patient suffered a fall 3 days ago after feeling weak at home. He suffered a r
[2023-09-04] MEDS: oxyCODONE/ACETAMINOPHEN (*CRX) 10-325 MG TABLET 1 TAB PO (09:50)
--- NOTE | 2023-09-04 10:25 | PC.NURSE ---
Patient states he does have Percocet at home
[2023-09-05 22:21] LABS: Pneumococcal Antigen Urine Not Detected (Not Detected)
[2023-09-07 05:43] LABS: Legionella pneumophila Ag Ur Not Detected (Not Detected)
== END 2023-09-04 14:45 | disposition home health service (06) ==
LOC: ANHED 16:41 → ANH3MEDSUR 17:31
PROVIDERS: Nurse Practitioner Acute Care; Student in an Organized Health Care Education/Training Program; Admitting Provider Internal Medicine; Emergency Provider Preventive Medicine Aerospace Medicine; PCP Internal Medicine; Visit Provider Chiropractor
DX: A41.9 Sepsis, unspecified organism (principal); J18.9 Pneumonia, unspecified organism; N17.9 Acute kidney failure, unspecified; I48.92 Unspecified atrial flutter; S62.121A Displaced fracture of lunate [semilunar], right wrist, initial encounter for closed fracture; S82.002A Unspecified fracture of left patella, initial encounter for closed fracture; M25.062 Hemarthrosis, left knee; W19.XXXA Unspecified fall, initial encounter; M17.12 Unilateral primary osteoarthritis, left knee; Z20.822 Contact with and (suspected) exposure to COVID-19; I48.0 Paroxysmal atrial fibrillation; I08.0 Rheumatic disorders of both mitral and aortic valves; I25.10 Atherosclerotic heart disease of native coronary artery without angina pectoris; C61 Malignant neoplasm of prostate; E03.9 Hypothyroidism, unspecified; E05.90 Thyrotoxicosis, unspecified without thyrotoxic crisis or storm; I95.9 Hypotension, unspecified; I11.0 Hypertensive heart disease with heart failure; I50.9 Heart failure, unspecified; R91.8 Other nonspecific abnormal finding of lung field; I47.10 Supraventricular tachycardia, unspecified; I42.9 Cardiomyopathy, unspecified; I49.3 Ventricular premature depolarization; Z85.46 Personal history of malignant neoplasm of prostate; F17.210 Nicotine dependence, cigarettes, uncomplicated; F10.90 Alcohol use, unspecified, uncomplicated; F11.10 Opioid abuse, uncomplicated; Z79.891 Long term (current) use of opiate analgesic; Z79.01 Long term (current) use of anticoagulants; Z79.899 Other long term (current) drug therapy; Z82.49 Family history of ischemic heart disease and other diseases of the circulatory system
CPT/HCPCS: 36415; 71045; 73110; 73200; 73560; 73700; 80048; 80053; 83036; 83605; 83735; 83880; 84100; 84145; 84484; 85025; 85610; 85730; 86140; 87040; 87449; 87636; 87899; 93005; 94667; 96365; 96366; 96367; 96375; 97110; 97161; 97165; 97530; 97535; 99285; A9270; C8929; G0378; J0613; J0696; J3475; J7030; L1830; Q9957